=== PATIENT | female | born 1960 | race Caucasian/White ===

== ENCOUNTER → 2025-08-24 | Day surgery (SDC) | payer MEDICARE ==
[2025-08-17 10:41] LABS: BASOPHILS % 0.7 % (0.0-1.0); EOSINOPHILS % 2.5 % (0.0-6.0); LYMPHOCYTES % 27.0 % (18.0-39.1); MONOCYTES % 5.6 % (4.4-11.3); NEUTROPHILS % 63.8 % (38.7-80.0); RED CELL DISTRIBUTION WIDTH 13.1 % (11.7-14.4)
[~2025-08-24] MED LIST: BUPIVACAINE LIPOSOME/PF 266 MG/20 ML IJ ONE; CRESTOR40 MG PO; DULOXETINE HCL60 MG PO; FENTANYL CITRATE/PF 100MCG/2 ML INJ ONE; HYDRALAZINE HCL 20 MG/ML VIAL ONE; IBUPROFEN400 MG PO; LEVOTHYROXINE50 MCG PO; LIDOCAINE HCL 2% LOCAL INJ 5 ML SDV VIAL INJ ONE; MIDAZOLAM HCL 2 MG/2 ML VIAL ONE; NEXIUM40 MG PO; OXYBUTYNIN CHLOR5 M1 PO; PHENYLEPHRINE HCL 1% 10 MG/ML VIAL ONE; PROPOFOL IV EMULSION 10 MG/ML 20 ML VIAL ONE; ROCURONIUM BROMIDE 1 ML IV ONE; SEVOFLURANE INHAL SOLN 250 ML PEN BTL ONE; SODIUM CHLORIDE 0.9% 100 ML ONE; SUCCINYLCHOLINE CHLORIDE 20 MG/ML 10ML VIAL ONE; SUGAMMADEX SODIUM 200 MG/2 ML VIAL IV ONE; ZESTRIL10 MG PO
[2025-08-24] MEDS: LACTATED RINGER'S 1,000 ML ONE (06:04)
[2025-08-24] MEDS: SODIUM CHLORIDE 0.9% 250ML 250 ML ONE (06:04)
[2025-08-24] MEDS: CEFAZOLIN SODIUM 2 GM ONE (06:04)
[2025-08-24] MEDS: Vancomycin IV 1 GM VIAL ONE (06:05)
[2025-08-24 09:59] VITALS: TEMP 97.4
[2025-08-24] MEDS: ONDANSETRON HCL INJ 2MG/ML 2ML 2 MG/ML VIAL ONE (10:25)
[2025-08-24] MEDS: METOCLOPRAMIDE HCL 10 MG/2ML VIAL ONE (10:25)
[2025-08-24] MEDS: KETOROLAC TROMETHAMINE 30 MG/ML VIAL ONE (10:30)
[2025-08-24 11:00] VITALS: BP 146/84; PULSE 55; RESP 18; O2SAT 99
== END | disposition home or self-care (01) ==
LOC: OR 05:15
PROVIDERS: ATTEND Orthopaedic Surgery Sports Medicine
DX: M19.111 Post-traumatic osteoarthritis, right shoulder (principal); S42.291A Other displaced fracture of upper end of right humerus, initial encounter for closed fracture; M24.411 Recurrent dislocation, right shoulder; I10 Essential (primary) hypertension; E78.5 Hyperlipidemia, unspecified; E03.9 Hypothyroidism, unspecified; K21.9 Gastro-esophageal reflux disease without esophagitis; F41.9 Anxiety disorder, unspecified; F32.A Depression, unspecified; X58.XXXA Exposure to other specified factors, initial encounter; Z01.810 Encounter for preprocedural cardiovascular examination; Z01.812 Encounter for preprocedural laboratory examination; Z01.818 Encounter for other preprocedural examination; Z79.1 Long term (current) use of non-steroidal anti-inflammatories (NSAID); Z79.899 Other long term (current) drug therapy
CPT/HCPCS: 23472; 36415; 71046; 73020; 85025; 86850; 86900; 88304; 88311; 93005; C1713 ×7; C1776 ×5; J0330; J0360; J0666; J1885; J2003; J2250; J2371; J2405; J2704; J2765; J3010; J3373; J7050 ×2; J7121